=== PATIENT | female | born 1990 | race Caucasian/White ===

== ENCOUNTER 2022-08-20 15:59 | Emergency (ER) | payer MEDICAID, OTHER ==
[~2022-08-20] VITALS: Ht 162.6 cm; Wt 77.1 kg
[2022-08-20 16:11] VITALS: BP 119/67
[2022-08-20] MEDS ORDERED: IBUP-1955 PO (16:37)
--- NOTE | 2022-08-20 17:40 | NUR ---
PT SEEN BY
--- NOTE | 2022-08-20 18:20 | NUR ---
Patient discharged to home in stable condition. Written and verbal after care instructions given. Patient verbalizes understanding of instruction.
== END 2022-08-20 18:40 | disposition home or self-care (01) ==
LOC: ER 16:08
DX: H92.03 Otalgia, bilateral (principal); Z79.899 Other long term (current) drug therapy